=== PATIENT | male | born 1985 | race Caucasian/White ===

== ENCOUNTER 2017-10-01 14:34 | Emergency (ER) | payer OTHER ==
[2017-10-01] MEDS ORDERED: LORazepam 1 MG TAB PO STA (16:24)
[2017-10-01 18:22] LABS: Amphetamine Screen,Urine Not Detected (NotDetected); Barbiturate Screen,Urine Not Detected (NotDetected); Benzodiazepines Screen,Urine Not Detected (NotDetected); Cocaine Screen,Urine Not Detected (NotDetected); Methadone Screen, Urine Not Detected (NotDetected); Opiate Screen,Urine Not Detected (NotDetected); Oxycodone Screen, Urine Not Detected (NotDetected); Phencyclidine Screen,Urine Not Detected (NotDetected); Tricyclic Antidepressant,Urine Not Detected (NotDetected); Urn Cannabinoid Scrn Detected (NotDetected)
--- NOTE | 2017-10-01 19:01 | ED ---
Psych HPI - General Chief Complaint: Psychiatric Symptoms Stated Complaint: mental health Time Seen by Provider: 10/01/17 15:37 Source: patient Mode of arrival: ambulatory - History of Present Illness Initial Comments: 32 years old male has a history of anxiety and depression he feels quite depressed he said this been going on for years now he also has a problem with OCT and anxiety I's service and cycle of anxiety depression and OCD that stresses him out this morning he felt they were very stressed out he denies any suicidal or homicidal ideation he denies any alcohol use and he denies any drugs onboard he has been compliant with his medications and he lives with his parents at home. He denies any medical complaints - Related Data Home Medications Medication Instructions Recorded Confirmed clonazePAM [KlonoPIN] 1 mg PO DAILY 10/01/17 10/01/17 fluvoxaMINE MALEATE [Fluvoxamine 100 mg PO BID 10/01/17 10/01/17 Maleate] lamoTRIgine [LaMICtal] 100 mg PO BID 10/01/17 10/01/17 Allergies Allergy/AdvReac Type Severity Reaction Status Date / Time No Known Allergies Allergy Verified 10/01/17 15:56 Review of Systems ROS Statement: Those systems with pertinent positive or pertinent negative responses have been documented in the HPI. ROS Other: All systems not noted in ROS Statement are negative. Past Medical History Past Medical History: No Reported History Additional Past Medical History / Comment(s): OCD History of Any Multi-Drug Resistant Organisms: None Reported Past Surgical History: No Surgical Hx Reported Past Psychological History: Anxiety, Depression Smoking Status: Current every day smoker Past Alcohol Use History: Occasional Past Drug Use History: None Reported General Exam - General Exam Comments Initial Comments: General: The patient is awake and alert, in no distress, and does not appear acutely ill. Skin: Skin is warm and dry and no rashes or lesions are noted. Eye: Pupils are equal, round and reactive to light, extra-ocular movements are intact; there is normal conjunctiva bilaterally. Ears, nose, mouth and throat: There are moist mucous membranes and no oral lesions. Neck: The neck is supple, there is no tenderness or JVD. Cardiovascular: There is a regular rate and rhythm. No murmur, rub or gallop is appreciated. Respiratory: To auscultation bilateral, no wheezing no rhonchi no distress respiratory cote noticed Gastrointestinal: Soft, non-distended, non-tender abdomen without masses or organomegaly noted. There is no rebound or guarding present. Bowel sounds are unremarkable. Back: There is no tenderness to palpation in the midline. There is no obvious deformity. Musculoskeletal: Normal ROM, no tenderness, There is no pedal edema. There is no calf tenderness or swelling. No cords were appreciated. Neurological: CN II-XII intact, Cranial nerves III through XII are intact. There are no obvious motor or sensory deficits. Coordination appears grossly intact. Speech is normal. Psychiatric: Cooperative, appropriate mood & affect in the ER right now denies any suicidal or homicidal ideation. thought process seen to be well organized him a he seems somewhat depressed Limitations: no limitations Course Vital Signs 10/01/17 14:41 Temperature 97.5 F L Pulse Rate 93 Respiratory 16 Rate Blood Pressure 117/78 O2 Sat by Pulse 99 Oximetry He was assessed by EPS and the recommendations are outpatient follow-up with his psychiatrist continue the current medications this was conveyed to the patient and the family Medical Decision Making - Lab Data Lab Results 10/01/17 Range/Units 17:49 Urine Opiates Screen Not Detected (NotDetected) Ur Oxycodone Screen Not Detected (NotDetected) Urine Methadone Screen Not Detected (NotDetected) Ur Propoxyphene Screen Not Detected (NotDetected) Ur Barbiturates Screen Not Detected (NotDetected) U Tricyclic Antidepress Not Detected (NotDetected) Ur Phencyclidine Scrn Not Detected (NotDetected) Ur Amphetamines Screen Not Detected (NotDetected) U Methamphetamines Scrn Not Detected (NotDetected) U Benzodiazepines Scrn Not Detected (NotDetected) Urine Cocaine Screen Not Detected (NotDetected) U Marijuana (THC) Screen Detected H (NotDetected) Disposition Clinical Impression: Depression, OCD (obsessive compulsive disorder) Disposition: HOME SELF-CARE Condition: Good Instructions: Depression (ED) Additional Instructions: He has his psychiatrist he is advised to follow-up with his psychiatrist or return to the ER if symptoms get worse Is patient prescribed a controlled substance at d/c from ED?: No Referrals: None,Stated [Primary Care Provider] - 1-2 days
[2017-10-01 19:11] VITALS: BP 116/56; PULSE 82; RESP 20; TEMP 97.9
== END 2017-10-01 19:05 | disposition home or self-care (01) ==
LOC: EC 14:34
DX: F42.9 Obsessive-compulsive disorder, unspecified (principal); F32.9 Major depressive disorder, single episode, unspecified; F41.9 Anxiety disorder, unspecified; F17.200 Nicotine dependence, unspecified, uncomplicated; Z79.899 Other long term (current) drug therapy
CPT/HCPCS: 80306; 99284